=== PATIENT | male | born 1980 | race Two or more races ===

== ENCOUNTER 2019-06-12 06:07 | Day surgery (SDC) | payer OTHER ==
[~2019-06-12 06:07] MED LIST: BENADRYL25 MG PO; NEURONTIN800 MG PO; XANAX2 MG PO
== END 2019-06-12 18:45 | disposition home or self-care (01) ==
LOC: CIR.AMB 06:07 → ADM 09:00 → CIR.AMB 09:00
DX: S63.592A Other specified sprain of left wrist, initial encounter (principal)

== ENCOUNTER 2021-03-10 06:25 | Day surgery (SDC) | payer OTHER ==
[~2021-03-10 06:25] MED LIST changes: +ELAVIL; +GABAPENTIN800 M1 PO; +SEROQUEL25 MG PO; +ULTRAM50 MG PO
== END 2021-03-10 16:35 | disposition home or self-care (01) ==
LOC: CIR.AMB 06:25
PROVIDERS: ATTEND Orthopaedic Surgery Hand Surgery
DX: M65.231 Calcific tendinitis, right forearm (principal); Z20.822 Contact with and (suspected) exposure to COVID-19

== ENCOUNTER 2024-02-14 06:26 | Day surgery (SDC) | payer OTHER ==
[~2024-02-14] VITALS: Ht 182.9 cm; Wt 117.9 kg
[2024-02-14] MEDS ORDERED: CEFAZOLIN SODIUM 1,000 MG VIAL ONE (09:35)
[2024-02-14] MEDS ORDERED: METHYLPREDNISOLONE ACETATE 80 MG/ML VIAL ONE (11:34)
[2024-02-14] MEDS ORDERED: SUGAMMADEX SODIUM 200 MG/2 ML VIAL IV ONE (12:18)
[2024-02-14] MEDS ORDERED: MORPHINE SULFATE 4 MG/ML VIAL IV ONE (12:50)
== END 2024-02-14 14:50 | disposition home or self-care (01) ==
LOC: CIR.AMB 06:26
PROVIDERS: ATTEND Orthopaedic Surgery Hand Surgery
DX: M24.831 Other specific joint derangements of right wrist, not elsewhere classified (principal); S63.301A Traumatic rupture of unspecified ligament of right wrist, initial encounter; F41.8 Other specified anxiety disorders; F41.0 Panic disorder [episodic paroxysmal anxiety]